=== PATIENT | male | born 1980 | race African-American/Black ===

== ENCOUNTER 2018-08-26 21:04 | Emergency (ER) | payer BC ==
[~2018-08-26] VITALS: Ht 177.8 cm; Wt 145.1 kg
--- NOTE | 2018-08-26 21:23 | NUR ---
DR. GRIGGS AT BEDSIDE FOR MSE.
[2018-08-26] MEDS ORDERED: NAPROXEN 500 MG TABLET ONE (21:42)
[2018-08-26] MEDS ORDERED: NAPROXEN 500 MG TABLET PO ONE (21:45)
[2018-08-26 22:05] LABS: CARBON DIOXIDE 29 mmol/L (21-32); CHLORIDE 100 mmol/L (98-107); CREATININE 1.1 mg/dL (0.6-1.3); GLUCOSE 151 mg/dL (74-106); UREA NITROGEN, BLOOD 14 mg/dL (7-18)
[2018-08-26 22:09] LABS: POTASSIUM 4.3 mmol/L (3.5-5.1)
[2018-08-26 22:11] LABS: ALANINE AMINOTRANSFERASE 56 U/L (16-63); ALKALINE PHOSPHATASE 82 U/L (50-136); ASPARTATE AMINOTRANSFERASE 33 U/L (15-37); BILIRUBIN,DIRECT < 0.1 mg/dL (0.0-0.2); BILIRUBIN,TOTAL 0.3 mg/dL (0.2-1.0)
[2018-08-26 22:12] LABS: BASOPHILS % (AUTO) 0.7 % (0.0-2.0); EOSINOPHILS # (AUTO) 0.1 K/uL (0.0-0.7); EOSINOPHILS % (AUTO) 2.5 % (0.0-7.0); HEMATOCRIT 42.7 % (36.7-47.1); HEMOGLOBIN 14.3 g/dL (12.5-16.3); LYMPHOCYTES # (AUTO) 1.3 K/uL (20.0-40.0); LYMPHOCYTES % (AUTO) 21.3 % (20.5-51.5); MEAN CORPUSCULAR HEMOGLOBIN 26.7 uug (23.8-33.4); MEAN CORPUSCULAR HGB CONC 33 g/dL (32.5-36.3); MEAN CORPUSCULAR VOLUME 79.9 fL (73.0-96.2); MONOCYTES # (AUTO) 0.5 K/uL (2.0-10.0); MONOCYTES % (AUTO) 9.2 % (0.0-11.0); NEUTROPHILS # (AUTO) 3.9 K/uL (1.8-8.9); NEUTROPHILS % (AUTO) 66.3 % (38.5-71.5); PLATELET COUNT (AUTO) 238 K/uL (152-348); RED BLOOD CELL COUNT(AUTO) 5.35 MIL/uL (4.06-5.63); WHITE BLOOD COUNT (AUTO) 5.9 K/uL (3.6-10.2)
[2018-08-26] MEDS ORDERED: IV NORMAL SALINE 250 ML IV ONE (22:32)
[2018-08-26] MEDS ORDERED: SWABABLE VALVE TRANSFER SET EA MC ONE (22:32)
[2018-08-26] MEDS ORDERED: NORMAL SALINE FLUSH 10 ML DISP.SYRIN ONE (22:32)
[2018-08-26] MEDS ORDERED: IOHEXOL 350 100 ML INFUS..BTL ONE (22:32)
--- NOTE | 2018-08-26 22:45 | NUR ---
SQL REPORT DEVELOPER AT BEDSIDE.
--- NOTE | 2018-08-26 22:45 | NUR ---
PT REFUSING IV & CTA AT THIS TIME. NOTIFIED.
--- NOTE | 2018-08-26 23:25 | NUR ---
PT WENT DOWN TO RADIOLOGY DEPT FOR CTA.
--- NOTE | 2018-08-26 23:43 | NUR ---
PT BACK FROM RADIOLOGY DEPT. NAD NOTED.
--- NOTE | 2018-08-27 02:02 | NUR ---
Patient discharged to home in stable conditon. Written and verbal after care instructions given. Patient verbalizes understanding of instructions. ALL BELONGINGS W/ PT. PT SELF-AMBULATED WITHOUT DIFFICULTY.
[2018-08-27 02:03] VITALS: BP 130/79
== END 2018-08-27 02:03 | disposition home or self-care (01) ==
LOC: ER 21:07
DX: R07.89 Other chest pain (principal); M54.2 Cervicalgia; M79.604 Pain in right leg; I10 Essential (primary) hypertension; J45.909 Unspecified asthma, uncomplicated
CPT/HCPCS: 36415 ×2; 71045; 71275; 80048; 80076; 84484 ×2; 85025; 85379; 93005 ×2; 93971; 99285; A4663; J3490; J7050; Q9967; 70030-TC